=== PATIENT | male | born 1990 | race African-American/Black ===

== ENCOUNTER 2021-08-30 01:18 | Inpatient (IN) | payer SELFPAY ==
[2021-08-30] MEDS ORDERED: ACETAMINOPHEN 500 MG TABLET (FP) PO ONE (01:39)
[2021-08-30 01:46] LABS: BASO % 0.5 % (0-2.0); EOS % 0.8 % (0-4.5); HEMATOCRIT 42.1 % (35.4-49); HEMOGLOBIN 14.3 GM/dL (11.7-16.9); LYMPH % 23.7 % (8-40); MCH 34.7 pg (25.7-33.7); MEAN PLT VOLUME 7.2 fl (7.5-11.1); MONO % 7.9 % (3.8-10.2); NEUT % 67.1 % (42.8-82.8); PLATELET COUNT 231 10^3/uL (134-434); RBC 4.13 M/mm3 (4.00-5.60); RDW 12.9 % (11.9-15.9); WHITE BLOOD COUNT 8.8 K/mm3 (4.0-10.0)
[2021-08-30] MEDS ORDERED: ACETAMINOPHEN 325 MG TABLET (FP) ONE (01:56)
[2021-08-30 02:07] LABS: ACTIVATED PTT 29.4 SECONDS (25.2-36.5)
[2021-08-30 02:08] LABS: INR 1.06 (0.83-1.09); PROTHROMBIN TIME (PATIENT) 12.2 SEC (9.7-13.0)
[2021-08-30 02:12] LABS: CALCIUM 9.1 mg/dL (8.5-10.1)
[2021-08-30 02:13] LABS: ALBUMIN 4.4 g/dl (3.4-5.0)
[2021-08-30 02:16] LABS: CREATININE 1.1 mg/dL (0.55-1.3)
[2021-08-30 02:18] LABS: BILIRUBIN,TOTAL 0.4 mg/dL (0.2-1); TOT PROT 7.3 g/dl (6.4-8.2)
[2021-08-30] MEDS ORDERED: morphine CARPU-JECT 4 MG/1 ML DISP.SYRIN IVPUSH ONE (03:21)
[2021-08-30] MEDS ORDERED: morphine SULFATE 4 MG/ML VIAL ONE (03:28)
[2021-08-30 07:59] LABS: BASO % 0.2 % (0-2.0); EOS % 1.5 % (0-4.5); HEMATOCRIT 40.8 % (35.4-49); HEMOGLOBIN 13.8 GM/dL (11.7-16.9); LYMPH % 28.2 % (8-40); MCH 34.5 pg (25.7-33.7); MCHC 33.9 g/dl (32.0-35.9); MEAN CELL VOLUME 101.9 fl (80-96); MEAN PLT VOLUME 7.6 fl (7.5-11.1); MONO % 10.2 % (3.8-10.2); NEUT % 59.9 % (42.8-82.8); PLATELET COUNT 232 10^3/uL (134-434); RDW 13.2 % (11.9-15.9); WHITE BLOOD COUNT 11.6 K/mm3 (4.0-10.0)
[2021-08-30 08:14] LABS: INR 1.04 (0.83-1.09)
[2021-08-30 08:16] LABS: ACTIVATED PTT 30.7 SECONDS (25.2-36.5)
[2021-08-30 08:18] LABS: ALBUMIN 4.3 g/dl (3.4-5.0); BLOOD UREA NITROGEN 12.8 mg/dL (7-18); CALCIUM 8.8 mg/dL (8.5-10.1)
[2021-08-30 08:23] LABS: BILIRUBIN,TOTAL 0.5 mg/dL (0.2-1)
[2021-08-30 10:14] VITALS: BMI 26.1
[2021-08-30] MEDS ORDERED: HYDROmorphone HCl 2 MG/ML VIAL IVPB PRN (14:08)
[2021-08-30 15:59] VITALS: BP 156/81; PULSE 55; TEMP 98.5
== END 2021-08-30 20:53 | disposition left against medical advice (07) | DRG 342 ==
LOC: JER 01:18 → JERBED 03:28 → J8W 09:20
PROVIDERS: ADMIT Hospitalist; ATTEND Internal Medicine
DX: S82.142A Displaced bicondylar fracture of left tibia, initial encounter for closed fracture (principal); R26.2 Difficulty in walking, not elsewhere classified; Y93.67 Activity, basketball; Y92.89 Other specified places as the place of occurrence of the external cause
CPT/HCPCS: 0241U-QW; 36415; 73562-TC-LT-FY; 73590-TC-LT-FY; 73706-TC-RT; 80053; 85025; 85610; 85730; 99285-25; Q9967

== ENCOUNTER 2022-10-31 09:51 | Emergency (ER) | payer BC, OTHER ==
[2022-10-31 09:59] VITALS: BP 148/87; PULSE 93; RESP 20; TEMP 98.2; BMI 25.0
[2022-10-31] MEDS ORDERED: DIPHTH,PERTUSS(ACELL),TET 0.5 ML DISP.SYRIN IM ONE ×2 (10:46→11:33)
[2022-10-31] MEDS ORDERED: KETOROLAC TROMETHAMINE 15 MG/ML VIAL IM ONE (10:46)
[2022-10-31] MEDS ORDERED: KETOROLAC TROMETHAMINE 15 MG/ML VIAL ONE (11:33)
[2022-10-31] MEDS ORDERED: ACETAMINOPHEN 500 MG TABLET (FP) PO ONE (12:11)
[2022-10-31] MEDS ORDERED: ACETAMINOPHEN 500 MG TABLET (FP) ONE (12:18)
== END 2022-10-31 13:12 | disposition home or self-care (01) ==
LOC: JERFT 09:51
PROC: 3E0233Z Introduction of Anti-inflammatory into Muscle, Percutaneous Approach (ICD-10-PCS; principal; 2022-10-31)
PROC: 3E0234Z Introduction of Serum, Toxoid and Vaccine into Muscle, Percutaneous Approach (ICD-10-PCS; 2022-10-31)
DX: S52.501A Unspecified fracture of the lower end of right radius, initial encounter for closed fracture (principal); M79.631 Pain in right forearm; M25.531 Pain in right wrist; M25.561 Pain in right knee; M25.571 Pain in right ankle and joints of right foot; S90.511A Abrasion, right ankle, initial encounter; S50.811A Abrasion of right forearm, initial encounter; S70.211A Abrasion, right hip, initial encounter; V28.09XA Other motorcycle driver injured in noncollision transport accident in nontraffic accident, initial encounter
CPT/HCPCS: 71046-TC-FY; 73070-TC-RT-FY; 73090-TC-RT-FY; 73110-TC-RT-FY; 73130-TC-RT-FY; 73564-TC-RT-FY; 73590-TC-RT-FY; 73610-TC-RT-FY; 73630-TC-RT-FY; 90471; 90715; 96372; 99284-25

== ENCOUNTER 2022-11-08 10:25 | Day surgery (SDC) | payer BC ==
[2022-11-07 15:00] VITALS: BMI 24.3
[2022-11-08] MEDS ORDERED: ROPIVACAINE HCL 0.5% 30ML VIAL ONE (11:01)
[2022-11-08] MEDS ORDERED: MIDAZOLAM HCL 2 MG/2 ML SINGLE DOSE VIAL ONE ×2 (11:01→11:18)
[2022-11-08] MEDS ORDERED: BUPIVACAINE HCL/PF 0.25% (2.5MG/ML) 10 ML VIAL ONE (11:07)
[2022-11-08] MEDS ORDERED: PROPOFOL 40 ML ONE (11:41)
[2022-11-08] MEDS ORDERED: ceFAZolin SODIUM 1 GM VIAL ONE (12:40)
[2022-11-08] MEDS ORDERED: ONDANSETRON 4 MG/2 ML VIAL ONE (12:40)
[2022-11-08] MEDS ORDERED: DEXAMETHASONE SOD PHOSPHATE 4 MG/1 ML VIAL ONE (12:40)
[2022-11-08] MEDS ORDERED: oxyCODONE HCL 5 MG TABLET PO PRN ×2 (12:47)
[2022-11-08] MEDS ORDERED: ONDANSETRON 4 MG/2 ML VIAL IVPUSH PRN (12:47)
[2022-11-08] MEDS ORDERED: ACETAMINOPHEN 1000 MG/100 ML BAG IVPB ONE (12:47)
[2022-11-08] MEDS ORDERED: LACTATED RINGERS SOLUTION 1,000 ML IV SCH (13:00)
[2022-11-08] MEDS ORDERED: ACETAMINOPHEN INJECTION 100 ML IVPB ONE (13:40)
[2022-11-08 15:41] VITALS: RESP 20; TEMP 98
[2022-11-08 15:45] VITALS: BP 116/62; PULSE 60
== END 2022-11-08 14:40 | disposition home or self-care (01) ==
LOC: FASU 10:25
PROVIDERS: ATTEND Orthopaedic Surgery Hand Surgery
PROC: 0LN50ZZ Release Right Lower Arm and Wrist Tendon, Open Approach (ICD-10-PCS; 2022-11-08)
PROC: 0PSH04Z Reposition Right Radius with Internal Fixation Device, Open Approach (ICD-10-PCS; principal; 2022-11-08 11:48)
DX: S52.571A Other intraarticular fracture of lower end of right radius, initial encounter for closed fracture (principal); X58.XXXA Exposure to other specified factors, initial encounter; Y93.9 Activity, unspecified; Y92.9 Unspecified place or not applicable
CPT/HCPCS: 25290; 25609; C1713; 73110-TC-RT-FY; 73130-TC-RT-FY; 94760

== ENCOUNTER 2024-11-09 23:59 | Emergency (ER) | payer BC, OTHER ==
[2024-11-10 00:02] VITALS: BP 145/75; PULSE 85; RESP 18; TEMP 98; BMI 22.8
[2024-11-10] MEDS ORDERED: IBUPROFEN 400 MG TABLET (FP) PO ONE (01:06)
[2024-11-10] MEDS: IBUPROFEN 400 MG TABLET (FP) PO ONE (01:07)
== END 2024-11-10 03:47 | disposition home or self-care (01) ==
LOC: JER 23:59
DX: S69.92XA Unspecified injury of left wrist, hand and finger(s), initial encounter (principal); V00.841A Fall from standing electric scooter, initial encounter; Y92.009 Unspecified place in unspecified non-institutional (private) residence as the place of occurrence of the external cause
CPT/HCPCS: 73110-TC-LT-FY; 73130-TC-LT-FY; 99283-25